=== PATIENT | female | born 1995 | race African-American/Black ===

== ENCOUNTER 2020-07-27 20:19 | Inpatient (IN) | payer BC, OTHER ==
[~2020-07-27] VITALS: Ht 167.6 cm; Wt 105.9 kg
[2020-07-27] MEDS ORDERED: ACETAMINOPHEN 325 MG TAB PO ONE (20:30)
[2020-07-27] MEDS ORDERED: CEFTRIAXONE SODIUM 2 GM in D5W 5% 50 ML IV ONE (23:15)
[2020-07-27] MEDS ORDERED: cefTRIAXone 1GM/50ML D5W 100 ML IV ONE (23:19)
[2020-07-28] VITALS (70 sets, daily range): BP systolic 58–147; BP diastolic 29–125
[2020-07-28] MEDS ORDERED: BUTORPHANOL TARTRATE 2 MG/1 ML VIAL IV PRN (00:45)
[2020-07-28] MEDS ORDERED: WITCH HAZEL-GLYCERIN PAD TOP PRN (01:00)
[2020-07-28] MEDS ORDERED: LACT. RINGERS/OXYTOCIN 20UNITS 1,000 ML IV SCH (01:00)
[2020-07-28] MEDS ORDERED: PHISODERM TOP SOLN 240ML BTL TOP PRN (01:00)
[2020-07-28] MEDS ORDERED: DERMOPLAST 60ML BOTTLE TOP PRN (01:00)
[2020-07-28] MEDS ORDERED: LIDOCAINE 2%HCL (LOCAL ANESTH.) INJ 20ML MDV IJ ONE (01:00)
[2020-07-28 01:03] LABS: Urine Bacteria NONE SEEN /hpf (None Seen); Urine Blood Negative /uL (Negative); Urine Specific Gravity 1.006 (1.001-1.035); Urine WBC 1 /hpf (0 - 5)
[2020-07-28 01:13] LABS: Amphetamine Screen, Urine NEGATIVE (NEGATIVE); Barbiturate Scree,Urine NEGATIVE (NEGATIVE); Benzodiazephine Screen, Urine NEGATIVE (NEGATIVE); Cannabinoid Screen, Urine NEGATIVE (NEGATIVE); Cocaine Screen, Urine NEGATIVE (NEGATIVE); Opiate Scree,Urine NEGATIVE (NEGATIVE); Phencyclidine Screen, Urine NEGATIVE (NEGATIVE)
[2020-07-28] MEDS ORDERED: GENTAMICIN SULFATE 80 MG in D5W 5% 100 ML IV SCH ×2 (01:30→10:00)
[2020-07-28] MEDS ORDERED: ACETAMINOPHEN 325 MG TAB PO PRN ×2 (01:45→05:30)
[2020-07-28 02:27] LABS: Basophils # (auto) 0 10 ^3/uL (0-0.2); Eosinophils # (auto) 0 10 ^3/uL (0-0.8); Lymphocytes # (auto) 0.7 10 ^3/uL (0.4-5.4); Monocytes # (auto) 0 10 ^3/uL (0-1.3); Red Cell Distribution Width 13.7 % (11.8-14.3)
[2020-07-28 02:31] LABS: Basophils % (auto) 0.2 % (0.0-2.0); Eosinophils % (auto) 0.1 % (0.0-7.0); Hematocrit 34.7 % (36.0-46.0); Hemoglobin 11.7 g/dL (12.2-16.2); Lymphocytes % (auto) 27.4 % (10.0-50.0); Mean Corpuscular Hemoglobin 29.5 pg (28.0-32.0); Mean Corpuscular Hgb Conc. 33.6 g/dL (32.0-36.0); Monocytes % (auto) 0.6 % (0.0-12.0); Neutrophils # (auto) 1.8 10 ^3/uL (1.6-8.6); Neutrophils % (auto) 71.7 % (37.0-80.0); Nucleated Red Blood Cells % 0.5 %; Platelet Count (auto) 215 10^3/uL (140-450); Red Blood Cells 3.94 10^6/uL (4.0-5.20); White Blood Cell 2.5 10^3/uL (4.4-10.8)
[2020-07-28 02:45] LABS: INR 1.03 (0.9-1.15); Partial Thromboplastin Time 26.2 sec (23.0-31.2)
[2020-07-28 02:46] LABS: Albumin 2.7 g/dL (3.4-5.0)
[2020-07-28 02:55] LABS: BUN/Creatinine Ratio 10.2; Bilirubin, Total 0.4 mg/dL (0.2-1.0); Total Protein 6.6 g/dL (6.4-8.2); Uric Acid 3.7 mg/dL (2.6-6.0)
[2020-07-28 02:56] LABS: Potassium 2.6 mmol/L (3.5-5.1)
[2020-07-28] MEDS ORDERED: POTASSIUM CHL 20 Meq TABLET PO ONE (03:00)
[2020-07-28] MEDS ORDERED: SOD CHL 0.9%/ KCL 40MEQ 1,000 ML IV SCH (03:00)
[2020-07-28] MEDS: IBUPROFEN 600 MG TAB PO PRN ×2 (05:35→23:44)
--- NOTE | 2020-07-28 05:45 | NUR ---
Ambulation: Patient OOB with standby assistance by RN. Patient ambulated to bathroom with steady gait. Patient unable to void at this time. Pericare teaching provided with returned demonstration by patient. Clean gown provided and bed linen changed. Patient ambulated back to bed with steady gait and no distress noted.
[2020-07-28] MEDS: SODIUM CHLORIDE 0.9% 1,000 ML IV SCH ×2 (07:15→10:41)
[2020-07-28] MEDS ORDERED: cefTRIAXone 1GM/50ML D5W 50 ML IV SCH (09:00)
--- NOTE | 2020-07-28 09:00 | NUR ---
Patient ambulated to restroom with steady gait. Standby assist of RN. Patient voided 400ml of yellow urine without difficulty. Patient complained of severe diarrhea that is uncontrollable. Patient had two episodes of diarrhea while on the toilet. Stated the diarrhea started after receiving the antibiotics. Assisted with pericare and ambulated back to bed with standby assist. Educated on need to have mother assist patient to the restroom. Call for assistance if needed. Sd rails up x2. Bed low. Call light in reach.
--- NOTE | 2020-07-28 09:25 | NUR ---
Dr Rodriguez called. Informed of patient's diarrhea and pain not controlled with motrin. Verbalized understanding. Received orders for tylenol #3 1 tablet PO q 6 hours prn severe pain.
[2020-07-28] MEDS: ACETAMINOPHEN/CODEINE#3 (300/30mg) TAB PO PRN (09:57)
[2020-07-28] MEDS ORDERED: ONDANSETRON HCL 4 MG/2 ML VIAL ONE (10:25)
[2020-07-28] MEDS: POTASSIUM CHL 20MEQ/100ML 100 ML IV SCH ×2 (10:33→13:00)
[2020-07-28] MEDS: ONDANSETRON HCL 4 MG/2 ML VIAL IV PRN (10:34)
--- NOTE | 2020-07-28 10:35 | NUR ---
Patient resting in bed. Stated she needed to use the restroom, stated she was going to have another bowel movement. Patient was unable to get up to the restroom in time. Patient had to episodes of bowel incontinence in the bed. PENELOPE Matamoros and Yovani Noe RN performed ni care, changed all linens, provided new gown. Patient tolerated well. Before leaving, vital signs taken on left arm (BP 85/46 HR 117, Temp 98.0 oral, respirations 16 spo2 98% RA), vital signs taken again in left arm BP 83/46 hr 121, right arm BP 80/46 HR 121, Dr Rodriguez called at 1045. Updated of above information. Verbalized understanding. Received orders for a hospitalist consult and bolus 1000ml NS. Called drawbench operator helper regarding what physician/hospitalist is long lines operator. Stated Dr Vela would be the consulting physician. Requested STAT page for Dr Vela at the [facility] bed 1. Verbalized understanding. Bolus started at 1048. Addendum: 07/28/20 at 1320 by PARIS NOE RN Received orders for CBC stat. Informed Dr Rodriguez COVID screen, C-Diff and Blood cultures are pending.
--- NOTE | 2020-07-28 11:15 | NUR ---
RN at bedside during entire bolus infusion taking blood pressure measurements every 5 minutes. After bolus infusion completed BP 83/44 HR 120 Spo2 99% RA. Dr Rodriguez called to update on above information. Stated he is on his way to the hospital. Dr Vela called unit. Stated he is not the visitor information assistant physician. BP taken again at 1120 BP 73/48, code assist called. Head of bed lowered, legs elevated. Educated patient and mother regarding need to call for additional assistance due to the extra fluid did not help increase the patient's blood pressure as hoped. Verbalized understanding. Dr Oliveira arrived on the unit at 1126. BP 60/[address] Oliveira administered Neosynephrine 100mg IVP. 1137 Bp 82/48 Hr 123. 2nd dose of 100mg neosynephrine administered by Dr Oliveira. Dr Rodriguez arrived to room 1. Updated on patient's status, attempting to transfer patient to ICU per Dr Oliveira's recommendation. 1138 [facility] paper machine supervisor at bedside, IV right hand 20g started by Dr Oliveira. Patent tolerated well, patent secured to hand with transparent dressing. 1139 ICU called regarding transfer to room 8 and need to contact visitor information assistant physician. Dr Rodriguez is requesting to speak with visitor information assistant ICU DR. 1140-Levophed 2mic started by Libby ICU nurse, patient placed on monitor tech. 1145 BP 92/54 HR 123 Bharath (ICU SHRIMP POND LABORER) paged overhead to come to room [address] Oliveira administered 3rd dose of 100mg neosynephrine. Levophed increased to 4 chester by Velma NEGRETE. 1148 Bharath ROMAN called and stated to transfer paged to ICU immediately. 1149 Tam catheter placed using sterile technique by Yovani Noe RN. Draining dark yellow urine, tubing secured to leg, bag hung below bladder, no kinks in tubing. 1152- ordered a pelvic US to r/o remain placenta. Ashlee called in US. Informed of STAT order. Verbalized understanding. Stated she will be over immediately. 1155-levophed increased to 6 chseter by Velma. Patient transfered by bed to room 108 in ICU. Arrived to unit at 1200. SBAR given to Bharath ROMAN and Denise EQUIPMENT OPERATOR/LABORER/SUPERVISOR. See vital signs section for all vitals taken. Addendum: 07/28/20 at 1457 by PARIS NOE RN Correction to above medication administration of Ramo-synephrine was administered in mcg not mg.
[2020-07-28] MEDS ORDERED: NOREPINEPHRINE 8 MG/250ML KIT 250 ML IV ONE (11:28)
[2020-07-28 12:03] LABS: Basophils # (auto) 0 10 ^3/uL (0-0.2); Basophils % (auto) 0.1 % (0.0-2.0); Eosinophils # (auto) 0 10 ^3/uL (0-0.8); Eosinophils % (auto) 0.2 % (0.0-7.0); Hematocrit 30.6 % (36.0-46.0); Lymphocytes # (auto) 0.6 10 ^3/uL (0.4-5.4); Lymphocytes % (auto) 2.8 % (10.0-50.0); Mean Corpuscular Hemoglobin 29.2 pg (28.0-32.0); Mean Corpuscular Hgb Conc. 32.9 g/dL (32.0-36.0); Mean Corpuscular Volume 88.9 fL (80.0-100.0); Monocytes # (auto) 1.1 10 ^3/uL (0-1.3); Monocytes % (auto) 5.4 % (0.0-12.0); Neutrophils # (auto) 18.6 10 ^3/uL (1.6-8.6); Neutrophils % (auto) 91.5 % (37.0-80.0); Red Blood Cells 3.44 10^6/uL (4.0-5.20); Red Cell Distribution Width 14.1 % (11.8-14.3)
[2020-07-28 12:05] LABS: Platelet Count (auto) 60 10^3/uL (140-450); White Blood Cell 20.3 10^3/uL (4.4-10.8)
--- NOTE | 2020-07-28 12:05 | NUR ---
Pt being admitted to ICU from L&D GREENCASTLEDELIA admitted to ICU via gurney on property assessment monitor, and portable 02. Patient transferred to bed, connected to ICU monitoring and oxygen, and weighed by bedscale. Patient oriented to Denise Galeana, primary RN, unit, room, bed, and unit policies regarding patient care, Covid precautions due to rule out and visiting restrictions due to Covid 19. All questions and concerns addressed, patient verbalized understanding. Patient alert and oriented x4, no distress noted, respirations even and unlabored, patient denies abdominal pain or discomfort at this time, however does report neck and head pain and reports "I already had this pain before coming to hospital". Fall and safety precautions in place, will continue to monitor.
[2020-07-28] MEDS ORDERED: NOREPINEPHRINE 8 MG/250ML KIT 250 ML IV SCH (12:15)
[2020-07-28] MEDS ORDERED: VANCOMYCIN PER PHARMACY 0 MG IV SCH (12:15)
[2020-07-28] MEDS ORDERED: LACTATED RINGER'S 1,000 ML IV ONE ×2 (12:15)
[2020-07-28 12:44] LABS: Albumin 2.1 g/dL (3.4-5.0); Calcium 7.8 mg/dL (8.5-10.1)
[2020-07-28 12:53] LABS: BUN/Creatinine Ratio 14.8; Bilirubin, Total 0.6 mg/dL (0.2-1.0); CRP High Sensitivity 12.8 mg/dL (< 0.3); Total Protein 5.2 g/dL (6.4-8.2)
[2020-07-28 12:58] LABS: Potassium 2.7 mmol/L (3.5-5.1)
--- NOTE | 2020-07-28 13:00 | NUR ---
DR ESCAMILLA VISITS/US TECH AT BEDSIDE DR ESCAMILLA UPDATED ON PATIENT'S STATUS, NO ORDERS RECEIVED. ULTRA SOUND TECH AT BEDSIDE.
--- NOTE | 2020-07-28 15:01 | NUR ---
Mother is next of kin/emergency contact Kourtney Farmer: [phone]. Please call with updates. Patient states it is ok to give personal information to her mother.
[2020-07-28] MEDS ORDERED: SODIUM BICARBONATE 50ML VIAL 150 ML in D5W 5% 1,000 ML IV SCH (15:45)
[2020-07-28] MEDS ORDERED: LIDOCAINE 1% (LOCAL ANESTH.) PF 5ml SDV ID ONE (16:00)
--- NOTE | 2020-07-28 16:00 | NUR ---
PICC line placement Patient/Patient significant other educated on need for PICC line placement. All risks and benefits explained and all questions and concerns addressed prior to procedure. Noted past medical history and allergies with no contraindications. INR and Plt counts within acceptable range. 5 fr PICC line inserted via RIGHT BRACHIAL vein using [employer]'s [employer] US and Tip Location System. Sterile technique with maximum barrier precautions utilized. Blood return obtained from each of THE THREE lumens and each flushed easily with NS using proper technique. PICC secured with Stat-lock; biodisc and occlusive dressing applied. Stat portable chest x-ray obtained for PICC tip placement. *Baseline Arm Circumference 35CM, INTERNAL LENGTH 38 CM, EXTERNAL LENGTH 0CM. PICC lot # [id number]. Note:
--- NOTE | 2020-07-28 16:32 | NUR ---
PICC LINE PLACEMENT RETRACTION. INTERNAL LENGTH 35CM EXTERNAL LENGTH 3CM TOTAL LENGTH 38CM. CIRCUMFERENCE 35CM.
--- NOTE | 2020-07-28 16:34 | NUR ---
OK to use PICC line Xray completed. OK to use PICC line. PRIMARY RN NOTIFIED
[2020-07-28] MEDS: VANCOMYCIN 1GM/250ML 250 ML IV SCH (17:00)
[2020-07-28] MEDS ORDERED: IOHEXOL 350 MG/ML 100ML IJ ONE (17:13)
--- NOTE | 2020-07-28 18:23 | NUR ---
PATIENT OFF FLOOR/CONTACT HOSPITALIST PATIENT OFF FLOOR TO RADIOLOGY FOR CHEST CT, ACCOMPANIED BY CHARGE NURSE VERÓNICA AND BRAND RECORDER. PATIENT'S VITAL SIGNS STABLE, WITH ELEVATED HEART RATE LOW 130s AND MAXED ON LEVOPHED. SPOKE WITH RUBIO HOSPITALIST, UPDATED ON PATIENT'S STATUS THUS FAR AND 200 MLS OF CONCENTRATED URINE, VS AND MAX LEVOPHED. RUBIO VERBALIZED UNDERSTANDING AND REVIEW LABS AND PENDING CT RESULTS.
[2020-07-28 18:45] LABS: BUN/Creatinine Ratio 17.9; Calcium 6.6 mg/dL (8.5-10.1); Potassium 4.1 mmol/L (3.5-5.1)
[2020-07-28 18:50] LABS: Partial Thromboplastin Time 48.2 sec (23.0-31.2)
[2020-07-28 18:51] LABS: INR 1.51 (0.9-1.15); Lactic Acid w/Reflex 8.7 mmol/L (0.4-2.0)
[2020-07-28] MEDS: NOREPINEPHRINE 8 MG/250ML KIT 250 ML IV SCH ×2 (19:00→23:48)
[2020-07-28] MEDS: PIPERACILLIN-TAZOB 3.375GM 100 ML IV SCH ×2 (19:00→22:00)
--- NOTE | 2020-07-28 19:00 | NUR ---
SHIFT SUMMARY VITAL SIGN CHANGES THROUGHOUT SHIFT, HEART RATE INCREASED/LOW SBP. PATIENT REMAINS ON MAX RATE LEVOPHED TITRATED PER PROTOCOL THROUGHOUT SHIFT. HOSPITALIST AWARE HOSPITALIST VISITS THROUGHOUT MORNING SHIFT, OBTAINING STATUS ON PATIENT. PATIENT HAD TWO LOOSE STOOLS EARLY IN THE SHIFT YELLOW IN COLOR, PER L&D NURSE, C-DIFF SENT TO LAB, HOSPITALIST AWARE. PATIENT REMAINED ALERT AND ORIENTED THROUGHOUT SHIFT, ON TWO OCCASIONS, PATIENT REPORTED FEELING LIGHT HEADED AND BLURRED VISION, AT THIS TIME SBP WAS IN THE 60 - 70s. ON BOTH OCCASIONS, PATIENT STABILIZED AND INCREASED LEVOPHED PER PROTOCOL. MD AWARE. SCANT VAGINAL BLEEDING BLEEDING NOTED, PATIENT CLEANSED TWICE IN SHIFT - TOLERATED WELL. PATIENT ALERT AND ORIENTED X4, NO DISTRESS NOTED, RESPIRATIONS EVEN AND UNLABORED, PATIENT CARE ENDORSED TO MANAGER IN TRAINING RN.
--- NOTE | 2020-07-28 19:00 | NUR ---
Opening Shift Note Assumed care of patient, awake and alert. No S/S of distress/SOB or pain. Instructed on POC and to call for assist PRN, will continue to monitor for changes Q1hr and PRN.
--- NOTE | 2020-07-28 19:53 | NUR ---
CONTACT HOSPITALIST SPOKE WITH RUBIO, PROVIDED UPDATED STATUS ON VITAL SIGNS. ORDERS FOR VASOPRESSIN AND TO INCREASE MAINTENANCE FLUID TO 150 MLS/HR. KVNG ON COMING RN NOTIFIED.
[2020-07-28] MEDS: VASOPRESSIN 50 UNITS in D5W 5% 247.5 ML IV SCH (20:00)
[2020-07-28] MEDS: SODIUM BICARBONATE 50ML VIAL 150 ML in D5W 5% 1,000 ML IV SCH (20:00)
--- NOTE | 2020-07-28 21:00 | NUR ---
BM: Patient had a BM. RN and another female RN provided ni care and partial linen change.
[2020-07-28 21:35] LABS: Hematocrit 25.7 % (36.0-46.0); Hemoglobin 8.6 g/dL (12.2-16.2); Mean Corpuscular Hemoglobin 29.3 pg (28.0-32.0); Mean Corpuscular Hgb Conc. 33.5 g/dL (32.0-36.0); Mean Corpuscular Volume 87.5 fL (80.0-100.0); Platelet Count (auto) 53 10^3/uL (140-450); Red Blood Cells 2.94 10^6/uL (4.0-5.20); Red Cell Distribution Width 14.1 % (11.8-14.3); White Blood Cell 22.6 10^3/uL (4.4-10.8)
[2020-07-28 21:38] LABS: Basophils % (manual) 0 (0.0-2.0); Blast Cells 0; Eosinophils % (manual) 0 (0-7); Myelocytes % 0; Promyelocytes % 0; Reactive Lymphocytes 0
[2020-07-28 21:59] LABS: Band Neutrophils % (manual) 32; Lymphocytes % (manual) 3 (10.0-50.0); Metamyelocytes % 3; Monocytes % (manual) 7 (0-12)
[2020-07-28] MEDS: SODIUM CHLOR 0.9% PF (SALINE LOCK) 10ML VIAL/SYR IV SCH (22:00)
[2020-07-29] VITALS (87 sets, daily range): BP systolic 81–113; BP diastolic 34–77
[2020-07-29] MEDS ORDERED: cefTRIAXone 1GM/50ML D5W 50 ML IV SCH
--- NOTE | 2020-07-29 | NUR ---
BM: Patient had a BM. RN and another female RN provided ni care and partial linen change.
[2020-07-29] MEDS ORDERED: SODIUM BICARBONATE 8.4 % INJ 50ML VIAL IV ONE (01:22)
[2020-07-29] MEDS: SODIUM BICARBONATE 50ML VIAL 150 ML in D5W 5% 1,000 ML IV SCH ×2 (02:00→10:30)
--- NOTE | 2020-07-29 02:42 | NUR ---
Hospitalist paged: Hospitalist paged d/t patient complaining of the inability to sleep. Hospitalist returned page immediately. Order received and verified.
[2020-07-29] MEDS ORDERED: TEMAZEPAM 15 MG CAP PO ONE (02:45)
[2020-07-29] MEDS: ONDANSETRON HCL 4 MG/2 ML VIAL IV PRN ×2 (03:10→09:21)
--- NOTE | 2020-07-29 03:10 | NUR ---
Patient vomited: Patient vomited all over bed and floor. Patient appears to not be in any kind of distress. Patient stated, "I just had a hick up and i ended up vomiting". RN provided a full linen change and cleaned bed and floor. Patient resting back in bed comfortably. PRN Zofran was given.
[2020-07-29] MEDS: PIPERACILLIN-TAZOB 3.375GM 100 ML IV SCH ×4 (04:00→22:00)
--- NOTE | 2020-07-29 04:00 | NUR ---
Resting: Patient resting in bed and asleep. RN will continue to monitor and assess patient.
[2020-07-29 04:01] LABS: Hemoglobin 10.7 g/dL (12.2-16.2)
[2020-07-29 04:04] LABS: Hematocrit 30.8 % (36.0-46.0); Mean Corpuscular Hemoglobin 29.5 pg (28.0-32.0); Mean Corpuscular Hgb Conc. 34.6 g/dL (32.0-36.0); Mean Corpuscular Volume 85.3 fL (80.0-100.0); Platelet Count (auto) 65 10^3/uL (140-450); Red Blood Cells 3.61 10^6/uL (4.0-5.20)
[2020-07-29 04:10] LABS: White Blood Cell 30.2 10^3/uL (4.4-10.8)
[2020-07-29 04:11] LABS: Basophils % (manual) 0 (0.0-2.0); Eosinophils % (manual) 0 (0-7); Promyelocytes % 0
[2020-07-29 04:12] LABS: Blast Cells 0; Reactive Lymphocytes 0
[2020-07-29 04:20] LABS: Albumin 2.1 g/dL (3.4-5.0); Calcium 6.9 mg/dL (8.5-10.1); Potassium 3.6 mmol/L (3.5-5.1)
[2020-07-29 04:24] LABS: BUN/Creatinine Ratio 16.8; Bilirubin, Total 0.6 mg/dL (0.2-1.0); Total Protein 5.4 g/dL (6.4-8.2)
[2020-07-29 04:37] LABS: Band Neutrophils % (manual) 5; Lymphocytes % (manual) 5 (10.0-50.0); Metamyelocytes % 6; Monocytes % (manual) 7 (0-12); Myelocytes % 2
[2020-07-29] MEDS: VANCOMYCIN 1GM/250ML 250 ML IV SCH ×2 (06:00→22:00)
--- NOTE | 2020-07-29 06:47 | NUR ---
Hospitalist paged: RN notified hospitalist of patient's increased WBC's. No new orders received at this time.
--- NOTE | 2020-07-29 07:30 | NUR ---
Opening Shift Note Assumed care of patient, awake and alert x 4, no S/S of distress/SOB or pain. Patient cleaned, gown and bedding changed, warm blanket given. Patient reports being hungry ny crackers and milk given before breakfast comes. Instructed on POC and to call for assist PRN, will continue to monitor for changes Q1hr and PRN.
[2020-07-29] MEDS: SODIUM CHLOR 0.9% PF (SALINE LOCK) 10ML VIAL/SYR IV SCH ×2 (09:20→22:00)
[2020-07-29] MEDS: FLORASTOR (S. BOULARDII) 250 MG CAP PO SCH (09:21)
[2020-07-29] MEDS: NOREPINEPHRINE 8 MG/250ML KIT 250 ML IV SCH ×3 (09:22→23:16)
--- NOTE | 2020-07-29 11:23 | NUR ---
PATIENT HAD A SMALL BM, CLEANED PATIENT AND CHANGED ALL PADS.
--- NOTE | 2020-07-29 11:39 | NUR ---
PICC LINE DRESSING CHANGE DONE TO RIGHT UPPER ARM PICC LINE. PATIENT TOLERATED WELL.
[2020-07-29] MEDS: VASOPRESSIN 50 UNITS in D5W 5% 247.5 ML IV SCH (11:47)
[2020-07-29] MEDS ORDERED: PANTOPRAZOLE 40 MG/10 ML VIAL INJ IV ONE (14:15)
[2020-07-29] MEDS: PROMETHAZINE HCL 25 MG/ML 1ML IV PRN ×2 (14:46→20:54)
--- NOTE | 2020-07-29 15:15 | NUR ---
TRANSVAGINAL US CURRENTLY BEING DONE AT THIS TIME.
[2020-07-29 16:28] LABS: BUN/Creatinine Ratio 18.2; Calcium 6.7 mg/dL (8.5-10.1)
[2020-07-29 16:30] LABS: Lactic Acid w/Reflex 3.7 mmol/L (0.4-2.0)
--- NOTE | 2020-07-29 18:45 | NUR ---
FUNDAL RUB PERFORMED BY THIS RN. SHE IS 3 FINGERTIPS BELOW. FIRM AND NO BLEEDING. PT TOLERATED WELL.
[2020-07-29] MEDS: SOD CHL 0.9%/ KCL 20MEQ 1,000 ML IV SCH ×2 (20:00→22:30)
[2020-07-29] MEDS ORDERED: metroNIDAZOLE 500MG/100ML 100 ML IV ONE (20:00)
--- NOTE | 2020-07-29 20:00 | NUR ---
Received pt resting in bed, c/o nausea, ate minimally at dinner, abdomen tender, fundus not palpable, massaged gently, small amt of bloody vaginal secretions,. Pt is slightly anxious, temp [id number], exreemities cool to touch, ; Pt is tachycardic 125-130/min, no respiratory distress on RA. assisted to brush her teeth and medicated for nausea, asks for bedpan, no results, f/c patent.
[2020-07-29] MEDS: ACETAMINOPHEN/CODEINE#3 (300/30mg) TAB PO PRN (23:18)
[2020-07-30] VITALS (90 sets, daily range): BP systolic 81–118; BP diastolic 31–79
[2020-07-30] MEDS: metroNIDAZOLE 500MG/100ML 100 ML IV SCH ×3 (03:54→21:45)
[2020-07-30] MEDS: PIPERACILLIN-TAZOB 3.375GM 100 ML IV SCH ×4 (03:54→23:07)
[2020-07-30] MEDS: ACETAMINOPHEN/CODEINE#3 (300/30mg) TAB PO PRN (03:57)
[2020-07-30 03:59] LABS: Hematocrit 26.8 % (36.0-46.0); Hemoglobin 9.2 g/dL (12.2-16.2); Mean Corpuscular Hemoglobin 29.3 pg (28.0-32.0); Mean Corpuscular Hgb Conc. 34.2 g/dL (32.0-36.0); Mean Corpuscular Volume 85.7 fL (80.0-100.0); Platelet Count (auto) 80 10^3/uL (140-450); Red Blood Cells 3.13 10^6/uL (4.0-5.20); Red Cell Distribution Width 13.8 % (11.8-14.3); White Blood Cell 26.3 10^3/uL (4.4-10.8)
[2020-07-30 04:13] LABS: Basophils % (manual) 0 (0.0-2.0); Blast Cells 0; Eosinophils % (manual) 0 (0-7); Myelocytes % 0; Promyelocytes % 0; Reactive Lymphocytes 0
[2020-07-30 04:20] LABS: Lactic Acid w/Reflex 4.7 mmol/L (0.4-2.0)
[2020-07-30 04:22] LABS: Albumin 1.9 g/dL (3.4-5.0); Calcium 6.3 mg/dL (8.5-10.1); Potassium 3.1 mmol/L (3.5-5.1)
[2020-07-30 04:26] LABS: BUN/Creatinine Ratio 18.1; Bilirubin, Total 0.6 mg/dL (0.2-1.0); Total Protein 5.4 g/dL (6.4-8.2)
[2020-07-30 04:49] LABS: Band Neutrophils % (manual) 4; Lymphocytes % (manual) 7 (10.0-50.0); Metamyelocytes % 3; Monocytes % (manual) 3 (0-12)
[2020-07-30] MEDS: VASOPRESSIN 50 UNITS in D5W 5% 247.5 ML IV SCH (04:50)
[2020-07-30 05:10] LABS: RPR Non Reactive (Non Reactive)
[2020-07-30 07:06] LABS: Rubella Antibodies, IgG 3.25 index (Immune >0.99)
--- NOTE | 2020-07-30 08:00 | NUR ---
AM ASSESSMENT COMPLETED. SEE FLOW SHEET. PT CURRENTLY ON LEVOPHED AT 25 SEAN/MIN FOR HYPOTENSION AND VASOPRESSIN AT .02 SEAN/MIN. PT S/P DEMISE, SEPTIC ON IVF. LOCHIAL MINIMAL, FUNDUS AT -3. EDUCATED ON POC. PT VERBALIZED UNDERSTANDING.
[2020-07-30] MEDS: PROMETHAZINE HCL 25 MG/ML 1ML IV PRN ×2 (08:46→21:45)
--- NOTE | 2020-07-30 08:48 | NUR ---
MEDICATED WITH 12.5 MG OF PHENERGAN AFTER PT VOMITED 200 ML OF VOMIT , PT WAS TRYING TO EAT HER BREAKFAST. PT UNABLE TO EAT HER BREAKFAST D/T N/V.
[2020-07-30] MEDS: SOD CHL 0.9%/ KCL 20MEQ 1,000 ML IV SCH ×3 (08:50→18:43)
--- NOTE | 2020-07-30 09:39 | NUR ---
OB ASSESSMENT DONE WITH COLLABORATION OF OB RN ANNA. PT'S FONDUS FOUND AT 3 CM BELOW UMBILICUS DEEP. LOCHIA SCANT LIGHT BROWN WITH A MILD FOUL ODOR. PT HAS A LOW GARDE TEMP 100.1 , IS NAUSEATED, UOP IMPROVING TO 40 ML/HR AND CLEARING UP, FROM A DARKER COLOR TO YELLOW. PT REMAINS ON VASOPRESSOR. IVF NS WITH 20K AT 150 ML/HR.
[2020-07-30] MEDS: PANTOPRAZOLE 40 MG/10 ML VIAL INJ IV SCH (10:00)
[2020-07-30] MEDS: FLORASTOR (S. BOULARDII) 250 MG CAP PO SCH (10:01)
[2020-07-30] MEDS: POTASSIUM CHL 20MEQ/100ML 100 ML IV SCH ×2 (10:01→12:40)
[2020-07-30] MEDS: SODIUM CHLOR 0.9% PF (SALINE LOCK) 10ML VIAL/SYR IV SCH ×2 (10:02→23:06)
[2020-07-30] MEDS: NOREPINEPHRINE 8 MG/250ML KIT 250 ML IV SCH (11:19)
[2020-07-30] MEDS ORDERED: MAGNESIUM SULFATE 1GM/100ML 100 ML IV ONE (11:45)
--- NOTE | 2020-07-30 11:50 | NUR ---
DR. ZHU IN TO SEE PT. UPDATED ON PT'S CONDITION VITAL SIGNS, LATEST TEMP 98.8 ORAL, UOP IMPROVING IN HOURLY OUTPUT AND COLOR. MD HAPPY WITH PT'S OVER ALL LOOK, HE STATES " LESS TOXIC SHOCK LOOK". HE IS HAPPY WITH VASOPRESSOR BEING TITRATED DOWN. I ASKED HIM IF IT WAS NECESSARY TO KEEP ON CHECKING FUNDUS HE SAYS IT'S NOT SINCE PT IS NO LONGER BLEEDING AND PT IS TENDER.
--- NOTE | 2020-07-30 13:45 | NUR ---
WEANED OFF VASOPRESSIN PT BEING TITRATED OFF LEVOPHED GTT, SEE IV FLOW SHEET.
[2020-07-30] MEDS: VANCOMYCIN 1GM/250ML 250 ML IV SCH (14:43)
--- NOTE | 2020-07-30 17:25 | NUR ---
SS consult due to demise. Pt is an alert and oriented female that lost her baby at 23 weeks. Pt is able to verbalize but showing little to no emotion when discussing loss. Pt states she resides with her mother in the [facility] and does not work or go to school. Pt states she was in the [facility] area visiting her brother. Also states that the FOB is involved and supportive. When asked pt stated she has 1 child and when asked the age she verbalized that child had passed also when she was 17 weeks in December 2019. Discussed with pt multiple major losses in less than a year and the impact on her emotionally. per pt she has not processed the loss due to the amount of pain she has been in. Pt appears to be exhibiting emotional pain in the form of physical distress. Provided encouragement to utilize appropriate coping mechanisms i.e. support group, outpatient therapy, and emotional/verbal grief expression. Provided literature regarding loss and support groups in the [facility]. Will also provide list of contracted therapists in the [place] area. Pt states she was able to hold the baby but that her mother is is the one finalizing arrangements for a memorial for baby. no further ss concerns /needs.
--- NOTE | 2020-07-30 19:45 | NUR ---
REPORT RECEIVED AND ASSUMED CARE; SEE INTERVENTIONS FOR ASSESSMENT; VS STABLE AT THIS TIME WITH PT. ON LEVOPHED GTT AT 10MCG/MIN; PT. RESTING IN BED, WATCHING TV, AND TALKING ON HER CELL PHONE; PT. STATES HER PAIN LEVEL IS OK AT A 0-5/10, AND STATES HER LEVEL IS A 5 RIGHT NOW AND DOES NOT WANT PAIN MED AT THIS TIME; PT. ALSO HAVING SOME MILD NAUSEA- BUT TOO SOON FOR PHENERGAN IVP; PT. ON CLEAR LIQUID DIET AND CURRENTLY WORKING ON HER BROTH, JUICE, AND SOME ICE WATER; PT. FUNDUS IS TENDER AND NO LONGER DOING FUNDAL MASSAGE PER DR. LANGE; PT. HAVING SCANT LOCHIA THAT IS BROWNISH-RED AND FOUL ODOR; WILL CONT. TO MONITOR.
--- NOTE | 2020-07-30 22:00 | NUR ---
PROVIDED ADELAIDE-CARE AND CHANGED FEMININE PAD; APPLIED ICE PACK TO VAGINAL AREA; PT. C/O PAIN IN VAGINAL AREA AND SOME EDEMA TO VAGINAL AREA; WILL CONT. TO MONITOR.
[2020-07-31] VITALS (83 sets, daily range): BP systolic 95–121; BP diastolic 35–88
[2020-07-31] MEDS: VANCOMYCIN 1GM/250ML 250 ML IV SCH ×2 (02:03→15:14)
[2020-07-31] MEDS: PIPERACILLIN-TAZOB 3.375GM 100 ML IV SCH ×4 (04:00→21:59)
[2020-07-31] MEDS: SOD CHL 0.9%/ KCL 20MEQ 1,000 ML IV SCH ×4 (04:50→17:57)
[2020-07-31 06:48] LABS: Potassium 3.3 mmol/L (3.5-5.1)
[2020-07-31 06:59] LABS: BUN/Creatinine Ratio 15.9; Calcium 6.1 mg/dL (8.5-10.1); Magnesium 1.9 mg/dL (1.6-2.6)
[2020-07-31 07:01] LABS: Red Blood Cells 3.05 10^6/uL (4.0-5.20)
[2020-07-31 07:03] LABS: Hematocrit 26.1 % (36.0-46.0); Hemoglobin 8.8 g/dL (12.2-16.2); Mean Corpuscular Hemoglobin 28.9 pg (28.0-32.0); Mean Corpuscular Hgb Conc. 33.7 g/dL (32.0-36.0); Mean Corpuscular Volume 85.8 fL (80.0-100.0); Platelet Count (auto) 102 10^3/uL (140-450); Red Cell Distribution Width 13.8 % (11.8-14.3)
[2020-07-31 07:10] LABS: White Blood Cell 32.2 10^3/uL (4.4-10.8)
[2020-07-31 07:11] LABS: Basophils % (manual) 0 (0.0-2.0); Blast Cells 0; Eosinophils % (manual) 0 (0-7); Myelocytes % 0; Promyelocytes % 0; Reactive Lymphocytes 0
[2020-07-31] MEDS: metroNIDAZOLE 500MG/100ML 100 ML IV SCH ×3 (07:11→21:59)
[2020-07-31] MEDS: PROMETHAZINE HCL 25 MG/ML 1ML IV PRN ×3 (07:36→19:44)
--- NOTE | 2020-07-31 07:37 | NUR ---
MEDICATED WITH PHENERGAN 12.5 MG IV FOR NAUSEA AFTER REPOSITIONING .
--- NOTE | 2020-07-31 08:00 | NUR ---
AM ASSESSMENT COMPLETED. OFF VASOPRESSORS DENIES ANY N/V/D. S/P DEMISE. LOW GRADE TEMP 99.5 AX. WBC 32.2 WILL UPDATE MD WHEN ROUNDING.
[2020-07-31 08:12] LABS: Band Neutrophils % (manual) 9; Lymphocytes % (manual) 5 (10.0-50.0); Metamyelocytes % 1; Monocytes % (manual) 1 (0-12)
[2020-07-31] MEDS ORDERED: POTASSIUM CHL 20MEQ/100ML 100 ML IV ONE (09:30)
[2020-07-31] MEDS ORDERED: MAGNESIUM SULFATE 1GM/100ML 100 ML IV ONE (09:30)
[2020-07-31] MEDS: PANTOPRAZOLE 40 MG/10 ML VIAL INJ IV SCH (10:08)
[2020-07-31] MEDS: SODIUM CHLOR 0.9% PF (SALINE LOCK) 10ML VIAL/SYR IV SCH ×2 (10:09→22:00)
[2020-07-31] MEDS: FLORASTOR (S. BOULARDII) 250 MG CAP PO SCH (10:09)
--- NOTE | 2020-07-31 11:54 | NUR ---
DR. SEVILLA IN TO SEE PT. I UPDATED MD ON ECHO RESULTS. MD CALLED PT'S MOTHER PREVIOUSLY REQUESTED. HE LEFT HER A MESSAGE IN HER VOICE-MAIL, PT'S MOTHER WAS NOT AVAILABLE. MD PLACE A CARDIAC CONSULTATION TO INVESTIGATE A QUESTIONABLE VSD ON PT'S HEART DR. SEVILLA UPDATED PT. PT STATES SHE HAS NEVER HAD ANY ISSUES WITH HER HEART.PT WILL REMAIN IN ICU UNTIL SHE GET CARDIAC CLEARANCE.
[2020-07-31] MEDS ORDERED: POTASSIUM CHL 20 Meq TABLET PO ONE (12:00)
[2020-07-31] MEDS ORDERED: FUROSEMIDE 20 MG/2 ML VIAL IV ONE (12:00)
[2020-07-31] MEDS: NOREPINEPHRINE 8 MG/250ML KIT 250 ML IV SCH (12:15)
--- NOTE | 2020-07-31 14:31 | NUR ---
Nutrition Assessment Notes Please refer to link for full assessment notes. Est Energy needs: [id number] kcals (14-18 kcal/kgBW) Est Protein needs: 89-118 gms/day (1.5-2.0 gm/kgIBW) Will continue to monitor and reassess prn. Addendum: 07/31/20 at [address] Amended: Links added.
[2020-07-31 16:20] LABS: Calcium 6.4 mg/dL (8.5-10.1); Potassium 3.5 mmol/L (3.5-5.1)
[2020-07-31 16:22] LABS: BUN/Creatinine Ratio 12.3
--- NOTE | 2020-07-31 18:24 | NUR ---
DR. CHIANG IN FOR CARDIAC CONSULTATION I UPDATED MD ON PT'S CONDITION, HE HAS ALREADY SPOKEN TO DR. SEVILLA AND IS WELL AWARE OF PT'S SITUATION, HE PLANS ON DOING A ELIDA TOMORROW. HE SPOKE TO PT'S MOTHER CATERINA CATERINA EXPRESS HER DESIRE TO HAVE HER DAUGHTER TRANSFERRED TO HIGHER LEVEL OF CARE TO [facility], DR. CHIANG TOLD CATERINA THAT HE HAS CONNECTINS AT [facility] IF PT NEEDS HIGHER LEVEL OF CARE AFTER ELIDA " HE'LL MAKE IT HAPPEN".
--- NOTE | 2020-07-31 18:45 | NUR ---
DR. ZHU IN TO SEE PT. UPDATED ON PT'S ECHOCARDIOGRAM FINDINGS AND ON PT'S ELIDA PLAN FROM DR. CHIANG FOR TOMORROW. MD WAS TOLD BY PT'S DAUGHTER THAT HER MOTHER WANTS HER TO BE TRANSFERRED TO [facility] TO HER PRIMARY DOCTOR'S, MD STATES THAT HE AGREE'S BUT HE LEAVE'S THAT TO HIS PRIMARY MD. MD ALSO LEAVE'S PT'S ADL'S TO SLITTER CREASER SLOTTER HELPER TO DECIDE AFTER ELIDA TOMORROW. HAPPY WITH PT'S PROGRESS BEEN OFF ALL VASOPRESSORS, PT STILL C/O FEELING WEAK, HAVING POOR APPETITE AND FEELING ABDOMINAL TENDERNESS AND HAVING NAUSEA WITH INCREASED ACTIVITY OR WHEN EATING. PT REMAINS ON A FULL LIQUID DIET. PT HAD 2 SEMI- LIQUID BM'S TODAY. PT HAD ONE FULL BATH AND A PARTIAL BATH WITH A FULL LINEN CHANGE.
--- NOTE | 2020-07-31 19:15 | NUR ---
REPORT GIVEN TO ONCOMING SHIFT. PENELOPE DOUGLAS IS TO OBTAIN CONSENT FOR ELIDA FOR TOMORROW.
[2020-07-31] MEDS: VASOPRESSIN 50 UNITS in D5W 5% 247.5 ML IV SCH (20:00)
[2020-08-01] VITALS (15 sets, daily range): BP systolic 103–143; BP diastolic 63–95
[2020-08-01 01:14] LABS: Hematocrit 28.5 % (36.0-46.0); Hemoglobin 9.4 g/dL (12.2-16.2); Mean Corpuscular Hemoglobin 28.9 pg (28.0-32.0); Mean Corpuscular Hgb Conc. 33.1 g/dL (32.0-36.0); Mean Corpuscular Volume 87.3 fL (80.0-100.0); Platelet Count (auto) 102 10^3/uL (140-450); Red Blood Cells 3.26 10^6/uL (4.0-5.20); White Blood Cell 27.4 10^3/uL (4.4-10.8)
[2020-08-01 01:17] LABS: Band Neutrophils % (manual) 0; Basophils % (manual) 0 (0.0-2.0); Blast Cells 0; Eosinophils % (manual) 0 (0-7); Metamyelocytes % 0; Monocytes % (manual) 0 (0-12); Myelocytes % 0; Promyelocytes % 0; Reactive Lymphocytes 0
[2020-08-01 01:33] LABS: BUN/Creatinine Ratio 12.3; Calcium 6.6 mg/dL (8.5-10.1); Potassium 3.7 mmol/L (3.5-5.1)
[2020-08-01 01:36] LABS: Lymphocytes % (manual) 13 (10.0-50.0)
[2020-08-01] MEDS: VANCOMYCIN 1GM/250ML 250 ML IV SCH ×3 (02:20→17:20)
[2020-08-01] MEDS: ACETAMINOPHEN/CODEINE#3 (300/30mg) TAB PO PRN (02:38)
[2020-08-01] MEDS: PIPERACILLIN-TAZOB 3.375GM 100 ML IV SCH ×4 (04:50→18:30)
[2020-08-01] MEDS: metroNIDAZOLE 500MG/100ML 100 ML IV SCH ×3 (05:38→22:30)
[2020-08-01] MEDS: SODIUM CHLOR 0.9% PF (SALINE LOCK) 10ML VIAL/SYR IV SCH ×2 (09:46→22:00)
[2020-08-01] MEDS: PANTOPRAZOLE 40 MG/10 ML VIAL INJ IV SCH ×2 (09:46→10:01)
[2020-08-01] MEDS: SOD CHL 0.9%/ KCL 20MEQ 1,000 ML IV SCH (10:02)
[2020-08-01] MEDS ORDERED: MIDAZOLAM HCL 5 MG/ML-1ML VIAL ONE (12:37)
--- NOTE | 2020-08-01 13:09 | NUR ---
ELIDA WAS DONE AT THE BEDSIDE WITH BUBBLES PATIENT MEDICATED WITH 4 MG OF VERSED TOTAL AND PATIENT TOLERATED WELL. PATIENT ON OXYGEN AT 2 LITERS /NASAL CANNULA THEY FOUND PULMONARY HYPERTENSION AND PFO. PATIENT WILL START ON ROVADIO 20 MG TID FR PULMONARY HYPERTENSION.
[2020-08-01] MEDS: SILDENAFIL CITRATE 20 MG TAB PO SCH ×2 (14:34→19:54)
[2020-08-01] MEDS: FLORASTOR (S. BOULARDII) 250 MG CAP PO SCH (14:35)
--- NOTE | 2020-08-01 16:08 | NUR ---
PATIENT WENT TO NUCLEAR MED VIA BED AND WILL TRANSFER FROM NUCLEAR MEDICINE TO [facility]. REPORT TO YANNA.
--- NOTE | 2020-08-01 16:35 | NUR ---
1400 VANCOMYCIN DOSE NOT INFUSED. PHARMACY CALLED TO RESCHEDULE MEDICATION.
[2020-08-01] MEDS: PROMETHAZINE HCL 25 MG/ML 1ML IV PRN (19:55)
[2020-08-02] MEDS: PIPERACILLIN-TAZOB 3.375GM 100 ML IV SCH ×5 (00:18→23:48)
[2020-08-02] MEDS: PROMETHAZINE HCL 25 MG/ML 1ML IV PRN ×3 (00:22→22:35)
--- NOTE | 2020-08-02 00:56 | NUR ---
Transfer Received The patient arrived to the floor at approximately 2130hrs. The patient was in good spirits, denied pain but did appear to have labored breathing. Applied a Nasal Cannula, the patients breathing did improve. Completed my physical assessment, oriented the patient to her new environment. Will continue to monitor. Addendum: 08/02/20 at 0102 by JOSE HAMPTON RN Previous note on the wrong patient.
[2020-08-02 04:00] VITALS: BP 117/63
[2020-08-02] MEDS: VANCOMYCIN 1GM/250ML 250 ML IV SCH ×2 (04:33→16:42)
[2020-08-02] MEDS ORDERED: IPRATROPIUM BROM 0.5 MG/2.5ML INH SOL NEB ONE (05:15)
[2020-08-02] MEDS ORDERED: ALBUTEROL SULF 2.5 MG/0.5ML(0.5%) NEB SOLN NEB ONE (05:15)
--- NOTE | 2020-08-02 05:46 | NUR ---
Administered medneb tx as ordered. Pt tolerated tx well with no adverse reactions. HR 98, RR 18, SPO2 97% on room air. Breath sounds clear/diminished t/o. No s/s of distress noted. Pt aware to call for RT again if needed.
[2020-08-02] MEDS: metroNIDAZOLE 500MG/100ML 100 ML IV SCH ×3 (06:49→21:37)
--- NOTE | 2020-08-02 07:00 | NUR ---
OPENING SHIFT NOTE ASSUMED CARE OF PATIENT FROM BARK SKINNER RN KP. PATIENT IS AWAKE, ALERT, AND ORIENTED X4. PATIENT HAS NO S/S OF DISTRESS/SOB OR PAIN. INSTRUCTED PATIENT ON POC, PATIENT VERBALIZED UNDERSTANDING. BED IS IN LOWEST POSITION WITH SIDE RAILS RAISED X2,BED WHEELS LOCKED, GALVAN IS HANGING BELOW BLADDER AND IS DRAINING YELLOW URINE, AND CALL LIGHT IS WITHIN REACH. WILL CONTINUE MONITOR.
[2020-08-02] MEDS: SODIUM CHLOR 0.9% PF (SALINE LOCK) 10ML VIAL/SYR IV SCH ×2 (08:36→21:37)
[2020-08-02] MEDS: SILDENAFIL CITRATE 20 MG TAB PO SCH ×3 (08:36→20:10)
[2020-08-02] MEDS: PANTOPRAZOLE 40 MG/10 ML VIAL INJ IV SCH (08:36)
[2020-08-02] MEDS: FLORASTOR (S. BOULARDII) 250 MG CAP PO SCH (08:37)
[2020-08-02] MEDS: ACETAMINOPHEN/CODEINE#3 (300/30mg) TAB PO PRN (08:42)
[2020-08-02 09:00] VITALS: BP 118/76
[2020-08-02 09:29] LABS: Hematocrit 31.3 % (36.0-46.0); Hemoglobin 10.2 g/dL (12.2-16.2); Mean Corpuscular Hemoglobin 28.5 pg (28.0-32.0); Mean Corpuscular Hgb Conc. 32.5 g/dL (32.0-36.0); Mean Corpuscular Volume 87.6 fL (80.0-100.0); Platelet Count (auto) 143 10^3/uL (140-450); Red Blood Cells 3.57 10^6/uL (4.0-5.20); Red Cell Distribution Width 14.8 % (11.8-14.3); White Blood Cell 27.7 10^3/uL (4.4-10.8)
[2020-08-02 09:36] LABS: Basophils % (manual) 0 (0.0-2.0); Blast Cells 0; Myelocytes % 0; Promyelocytes % 0; Reactive Lymphocytes 0
[2020-08-02 09:45] LABS: Calcium 7.4 mg/dL (8.5-10.1); Potassium 3.4 mmol/L (3.5-5.1)
[2020-08-02 09:47] LABS: BUN/Creatinine Ratio 11.5
--- NOTE | 2020-08-02 10:23 | NUR ---
RECEIVED CALL FROM DR. WOODS INFORMED OF PATIENT'S POTASSIUM, MD IS AWARE AND ORDERED POTASSIUM TO BE GIVEN.
[2020-08-02] MEDS ORDERED: POTASSIUM EFFERVESENT TAB 25 MEQ PO ONE (10:30)
[2020-08-02 10:39] LABS: Band Neutrophils % (manual) 10; Eosinophils % (manual) 1 (0-7); Lymphocytes % (manual) 7 (10.0-50.0); Metamyelocytes % 1; Monocytes % (manual) 6 (0-12)
--- NOTE | 2020-08-02 12:00 | NUR ---
I SPOKE WITH DR. WOODS ABOUT TRANSFERRING PT TO [facility] SHE STATES PT CAN STAY IN 274; SHE JUST NEEDS TO BE MONITORED. SHE EXPRESSED CONCERN AT PT DIAGNOSIS BUT FELT SHE WAS STABLE BUT NEEDED HLOC. TRANSFER ORDER CANCELLED
[2020-08-02] MEDS: guaiFENesin 200 MG/10 ML UD PO PRN ×2 (12:31→21:38)
[2020-08-02 13:00] VITALS: BP 126/73
--- NOTE | 2020-08-02 15:00 | NUR ---
Called [facility] and left a message times 2 for Matt Israel to get authorization for the patient to be transferred.
--- NOTE | 2020-08-02 15:30 | NUR ---
Received a call from Matt LOPEZ with [facility] [phone], express to him that we have a order from the MD to transfer the patient to [facility] and the joinery factory worker request that the patient goes to [facility], gave verbal update on the patient and faxed the requested clinical packet to him, stated he would send it to the [facility] for [facility] and they would handle the transfer, Gave the room number 274B of the patient and the unit number [phone].
--- NOTE | 2020-08-02 16:47 | NUR ---
I SPOKE TO MOTHER OF PATIENT-JAIMIE ([phone]) SHE EXPRESSED HER CONCERNS ABOUT TRANSFERRING TO [facility] SOON POSSIBLE. I EXPLAINED THE TRANSFER PROCESS AND REASSURED HER WE WERE WORKING ON THE TRANSFER. SHE EXPRESSED HER THANKS I ALSO ADDRESSED THE PLANS FOR HER DAUGHTER'S BABY. SHE HAS NO PLANS. SOME PHONE NUMBERS PROVIDED
--- NOTE | 2020-08-02 16:58 | NUR ---
Called [facility] spoke with [employer] dispatcher and place the patient on Will Call to go to [facility] when bed available
[2020-08-02 17:00] VITALS: BP 129/74
--- NOTE | 2020-08-02 18:46 | NUR ---
CLOSING SHIFT NOTE PATIENT HAS NO S/S OF DISTRESS/SOB OR PAIN AT THIS TIME. WILL ENDORSE CARE TO HORTICULTURAL MANAGER RN.
--- NOTE | 2020-08-02 19:10 | NUR ---
Opening Shift Note Assumed patient care from Day Shift RN. Patient is AOx4 and sitting up in bed eating dinner. Patient has no complaints of pain. No s/s of distress and no SOB. POC discussed with patient, and patient verbally agreed to understanding. Patient craving crackers and asked if she can have some. She denies any vomiting or nausea. Call light is within reach and bed is locked in lowest position. Will continue to monitor.
[2020-08-02 21:00] VITALS: BP 125/79
--- NOTE | 2020-08-02 22:00 | NUR ---
Patient Lochia Patient used commode for bowel movement and upon getting up from commode, lochia was bight red and over a quarter size amount on new pad.
--- NOTE | 2020-08-02 22:15 | NUR ---
Noted Loose Stool Per Kriss NEGRETE. The patient had 2 previous loose stools. Tonight at 2200 this was her third watery stool within 24 hours. C-diff protocol was done and taken to lab.
--- NOTE | 2020-08-03 01:33 | NUR ---
Call from [facility] Trish from [facility] called to make aware they are currently working on a bed for patient.
[2020-08-03] MEDS: ACETAMINOPHEN/CODEINE#3 (300/30mg) TAB PO PRN (04:23)
[2020-08-03] MEDS: VANCOMYCIN 1GM/250ML 250 ML IV SCH ×2 (04:37→17:48)
[2020-08-03 05:00] VITALS: BP 126/73
[2020-08-03] MEDS: metroNIDAZOLE 500MG/100ML 100 ML IV SCH ×3 (05:33→22:23)
[2020-08-03] MEDS: PIPERACILLIN-TAZOB 3.375GM 100 ML IV SCH ×3 (06:10→17:48)
[2020-08-03 06:52] LABS: Hematocrit 28.6 % (36.0-46.0); Hemoglobin 9.7 g/dL (12.2-16.2); Mean Corpuscular Hemoglobin 29.3 pg (28.0-32.0); Mean Corpuscular Hgb Conc. 33.9 g/dL (32.0-36.0); Mean Corpuscular Volume 86.5 fL (80.0-100.0); Platelet Count (auto) 159 10^3/uL (140-450); Red Blood Cells 3.31 10^6/uL (4.0-5.20); Red Cell Distribution Width 14.3 % (11.8-14.3)
[2020-08-03 07:01] LABS: Calcium 7.5 mg/dL (8.5-10.1); Potassium 3.5 mmol/L (3.5-5.1); White Blood Cell 32.7 10^3/uL (4.4-10.8)
[2020-08-03 07:02] LABS: Basophils % (manual) 0 (0.0-2.0); Blast Cells 0; Metamyelocytes % 0; Myelocytes % 0; Promyelocytes % 0; Reactive Lymphocytes 0
[2020-08-03 07:04] LABS: BUN/Creatinine Ratio 11.3
--- NOTE | 2020-08-03 07:05 | NUR ---
OPENING SHIFT NOTE ASSUMED CARE OF PATIENT FROM BRUSH WORKER RN JOSEFINA. PATIENT IS AWAKE, ALERT, AND ORIENTED X4. PATIENT HAS NO S/S OF DISTRESS/SOB OR PAIN. INSTRUCTED PATIENT ON POC, PATIENT VERBALIZED UNDERSTANDING. BED IS IN LOWEST POSITION WITH SIDE RAILS RAISED X2,BED WHEELS LOCKED, GALVAN IS HANGING BELOW BLADDER AND IS DRAINING YELLOW URINE, AND CALL LIGHT IS WITHIN REACH. WILL CONTINUE MONITOR.
--- NOTE | 2020-08-03 07:13 | NUR ---
PAGED BROKER IN CHARGE HOSPITALIST FOR CRITICAL WBCs AWAITING CALL BACK.
--- NOTE | 2020-08-03 07:20 | NUR ---
RECEIVED CALL FROM HOSPITALIST INFORMED HIM OF PATIENT WBCs. PER BILLING MACHINE OPERATOR HOSPITALIST, THE DAY SHIFT HOSPITALIST WILL SEE THE PATIENT. NO NEW ORDERS GIVEN.
[2020-08-03 07:50] LABS: Band Neutrophils % (manual) 2; Eosinophils % (manual) 1 (0-7); Lymphocytes % (manual) 11 (10.0-50.0); Monocytes % (manual) 4 (0-12)
[2020-08-03] MEDS: FLORASTOR (S. BOULARDII) 250 MG CAP PO SCH (08:01)
[2020-08-03] MEDS: SILDENAFIL CITRATE 20 MG TAB PO SCH ×3 (08:01→22:23)
[2020-08-03 09:00] VITALS: BP 132/70
[2020-08-03] MEDS: PANTOPRAZOLE 40 MG/10 ML VIAL INJ IV SCH (10:00)
[2020-08-03] MEDS: SODIUM CHLOR 0.9% PF (SALINE LOCK) 10ML VIAL/SYR IV SCH ×2 (10:00→22:23)
--- NOTE | 2020-08-03 11:38 | NUR ---
re-assessment Called [facility] to follow up on transfer. I have left a message for Matt LOPEZ with [facility] [phone] to return my call. Addendum: 08/03/20 at 1139 by Antonina LORENZANA Amended: Links added.
--- NOTE | 2020-08-03 12:20 | NUR ---
PAGED DR. RAZO PATIENT IS FEELING ANXIOUS. PAGED MD RAZO. AWAITING CALL BACK
--- NOTE | 2020-08-03 12:56 | NUR ---
Nutrition Assessment/Consult Notes Pt wt is 105.9 kg Pt was awake when rounded this morning. Pt is s/p demise. Pt is with a Full Liquid diet, appetite is good aeb ave 88% PO intake per RN doc. Pt stated her N/V has subsided, she is feeling much better, her appetite has returned and she is ready to eat a regular diet. She stated her diarrhea is still present, has no distress. Est Energy needs: 8522-8542 kcals (14-18 kcal/kgBW) Est Protein needs: 89-118 gms/day (1.5-2.0 gm/kgIBW) Will continue to monitor and reassess prn. LABS: Ca 7.5 L, Alb 1.9 GI: Pt had 2 BM on 08/03 per RN doc. BS: 20 low risk. Refer to wound assessment report for full details. PES: 1) Obesity r/t energy intake in excess of energy needs aeb 174% IBW and BMI of 36.7 kg/m2 2) Altered nutrition related lab values r/t current medical condition aeb hyperglycemia, hypocalcemia, severe hypoalbuminemia Comments Will continue to monitor PO status, skin status, pertinent labs and weight trends. Will f/u in 3-5 days. 1) Continue to carefully monitor pt PO intake to meet at least 75% of meals 2) If albumin continues trending down consider Prostat 1 pkt BID 3) Continue current plan of care
[2020-08-03 13:00] VITALS: BP 139/77
--- NOTE | 2020-08-03 13:19 | NUR ---
Dr. Uribe is at bedside.
[2020-08-03] MEDS ORDERED: LORazepam 0.5 MG TAB PO PRN (13:30)
[2020-08-03 17:00] VITALS: BP 132/80
--- NOTE | 2020-08-03 18:46 | NUR ---
CLOSING SHIFT NOTE PATIENT HAS NO S/S OF DISTRESS/SOB OR PAIN AT THIS TIME. WILL ENDORSE CARE TO BUSINESS DATABASE ANALYST RN.
--- NOTE | 2020-08-03 19:00 | NUR ---
Opening Note Assumed care of patient, awake,alert and oriented. Unlabored breathing, on room air. No S/S of distress/SOB or pain. Instructed on POC and to call for assist PRN, will continue to monitor. Discontinue Tam catheter, output in the bag was 1100cc. Will continue to monitor for urinary retention. Bed side commode near the patient.
[2020-08-03 22:12] VITALS: BP 133/78
[2020-08-03] MEDS: PROMETHAZINE HCL 25 MG/ML 1ML IV PRN (22:24)
[2020-08-04] MEDS: PIPERACILLIN-TAZOB 3.375GM 100 ML IV SCH ×2 (01:16→04:36)
[2020-08-04] MEDS: VANCOMYCIN 1GM/250ML 250 ML IV SCH (04:28)
[2020-08-04] MEDS: metroNIDAZOLE 500MG/100ML 100 ML IV SCH (04:36)
[2020-08-04 05:49] VITALS: BP 129/73
--- NOTE | 2020-08-04 07:00 | NUR ---
OPENING SHIFT NOTE ASSUMED CARE OF PATIENT FROM CASING IN LINE FEEDER RN CHARISSE. PATIENT IS AWAKE, ALERT, AND ORIENTED X4. PATIENT HAS NO S/S OF DISTRESS/SOB OR PAIN. INSTRUCTED PATIENT ON POC, PATIENT VERBALIZED UNDERSTANDING. BED IS IN LOWEST POSITION WITH SIDE RAILS RAISED X2,BED WHEELS LOCKED, AND CALL LIGHT IS WITHIN REACH. WILL CONTINUE MONITOR.
--- NOTE | 2020-08-04 07:19 | NUR ---
CALLED LAB FOR 0400 LABS. PER CHIEF LOAD DISPATCHER THEY ARE ROUNDING RIGHT NOW
[2020-08-04] MEDS ORDERED: ASPI-498 OR (07:21)
[2020-08-04 07:49] LABS: Hematocrit 28.1 % (36.0-46.0); Hemoglobin 9.3 g/dL (12.2-16.2); Mean Corpuscular Hemoglobin 28.9 pg (28.0-32.0); Mean Corpuscular Hgb Conc. 33.3 g/dL (32.0-36.0); Mean Corpuscular Volume 86.8 fL (80.0-100.0); Platelet Count (auto) 192 10^3/uL (140-450); Red Blood Cells 3.23 10^6/uL (4.0-5.20); Red Cell Distribution Width 14.2 % (11.8-14.3); White Blood Cell 28.1 10^3/uL (4.4-10.8)
[2020-08-04 08:03] LABS: Basophils % (manual) 0 (0.0-2.0); Blast Cells 0; Metamyelocytes % 0; Myelocytes % 0; Promyelocytes % 0; Reactive Lymphocytes 0
[2020-08-04 08:04] LABS: Calcium 7.6 mg/dL (8.5-10.1); Magnesium 1.9 mg/dL (1.6-2.6); Potassium 3.3 mmol/L (3.5-5.1)
[2020-08-04 08:08] LABS: BUN/Creatinine Ratio 9.4; Bilirubin, Total 0.3 mg/dL (0.2-1.0); Phosphorus 3.2 mg/dL (2.5-4.90); Total Protein 5.6 g/dL (6.4-8.2)
[2020-08-04 08:18] LABS: INR 1.11 (0.9-1.15); Partial Thromboplastin Time 24.7 sec (23.0-31.2)
[2020-08-04 08:52] LABS: Band Neutrophils % (manual) 5; Eosinophils % (manual) 2 (0-7); Lymphocytes % (manual) 9 (10.0-50.0); Monocytes % (manual) 3 (0-12)
[2020-08-04 09:00] VITALS: BP 124/90
[2020-08-04] MEDS: SODIUM CHLOR 0.9% PF (SALINE LOCK) 10ML VIAL/SYR IV SCH (09:23)
[2020-08-04] MEDS: PANTOPRAZOLE 40 MG/10 ML VIAL INJ IV SCH (09:23)
[2020-08-04] MEDS: FLORASTOR (S. BOULARDII) 250 MG CAP PO SCH (09:23)
[2020-08-04] MEDS: SILDENAFIL CITRATE 20 MG TAB PO SCH (09:23)
--- NOTE | 2020-08-04 09:32 | NUR ---
RECEIVED CALL FROM [facility], SPOKE WITH [employer] CONSULTANT ARACELI. PER ARACELI THEY CARE CURRENTLY WORKING ON A BED FOR THE PATIENT.
--- NOTE | 2020-08-04 09:45 | NUR ---
PATIENT'S RIGHT ARM IS EDEMATOUS AND HOT. CALLED MD RAZO AND INFORMED HIM. MD ORDERED ULTRASOUND AND CHEST XRAY. WILL FOLLOW THROUGH WITH ORDERS.
--- NOTE | 2020-08-04 10:45 | NUR ---
RECEIVED CALL FROM ARACELI FROM [facility] PATIENT HAS A BED. [address] ACCEPTING MD IS DR. CAMPO. PHONE NUMBER IS . WILL INFORM MD RAZO.
--- NOTE | 2020-08-04 11:00 | NUR ---
MD RAZO AT BEDSIDE UPDATED MD ON PATIENT'S STATUS INCLUDING X-RAY RESULTS AND POTASSIUM LEVEL. MD IS AWARE AND ORDERED CATH FLOW. WILL FOLLOW THROUGH WITH ORDERS. PER MD PATIENT IS STABLE FOR TRANSPORTATION AND OKAY TO DO CATH FLOW.
[2020-08-04] MEDS ORDERED: POTASSIUM EFFERVESENT TAB 25 MEQ PO ONE (11:15)
[2020-08-04] MEDS ORDERED: POTASSIUM CHL 20MEQ/100ML 100 ML IV ONE (11:15)
[2020-08-04] MEDS ORDERED: CATHFLO ACTIVASE (ALTEPLASE) 2 MG VIAL IV ONE (11:30)
[2020-08-04] MEDS ORDERED: ACE325T PO (11:40)
[2020-08-04] MEDS ORDERED: GUAI-41 PO (11:40)
[2020-08-04] MEDS ORDERED: SILD20TA PO (11:45)
[2020-08-04] MEDS ORDERED: PIPE4INJ IV (11:45)
[2020-08-04] MEDS ORDERED: VANC500I IV (11:45)
--- NOTE | 2020-08-04 11:54 | NUR ---
PAGED MANIFOLD OPERATOR ROUTE VENDING MACHINE SERVICER FOR TRANSPORTATION.
--- NOTE | 2020-08-04 11:58 | NUR ---
SPOKE WITH LUCIA FROM [facility] TO SET UP TRANSPORTATION. ETA IS AT 1300
--- NOTE | 2020-08-04 12:01 | NUR ---
CALLED ARACELI FROM [facility] TWICE FOR NURSE REPORT. PHONE NUMBER FOR ARACELI IS . ARACELI DID NOT ANSWER. LEFT MESSAGE AWAITING CALL BACK.
[2020-08-04 12:28] VITALS: BP 124/90
[2020-08-04 13:00] VITALS: BP 125/71
--- NOTE | 2020-08-04 14:17 | NUR ---
RELIEF RN NOTE PER RELIEF RN LORENZA, TRANSPORTATION ([facility]) PICKED UP PATIENT AT 1341. PATIENT HAS NO S/S OF DISTRESS/SOB OR PAIN AT TIME OF DEPARTURE.
== END 2020-08-04 13:41 | disposition short-term general hospital (02) | DRG 817 ==
LOC: ER 20:22 → OBSVTOIN 21:05 → LDRP 21:05 → ICU WEST 07-28 12:02 → TELE-WESTW 08-01 15:56
PROVIDERS: ADMIT Specialist; ATTEND Internal Medicine Pulmonary Disease
PROC: 0UCC0ZZ Extirpation of Matter from Cervix, Open Approach (ICD-10-PCS; principal; 2020-07-28)
PROC: 02HV33Z Insertion of Infusion Device into Superior Vena Cava, Percutaneous Approach (ICD-10-PCS; 2020-07-28)
PROC: B548ZZA Ultrasonography of Superior Vena Cava, Guidance (ICD-10-PCS; 2020-07-28)
DX: O36.4XX0 Maternal care for intrauterine death, not applicable or unspecified (principal); R65.21 Severe sepsis with septic shock; J96.01 Acute respiratory failure with hypoxia; N17.0 Acute kidney failure with tubular necrosis; A41.9 Sepsis, unspecified organism; O99.12 Other diseases of the blood and blood-forming organs and certain disorders involving the immune mechanism complicating childbirth; Q21.0 Ventricular septal defect; Q21.1 Atrial septal defect; O99.412 Diseases of the circulatory system complicating pregnancy, second trimester; O99.112 Other diseases of the blood and blood-forming organs and certain disorders involving the immune mechanism complicating pregnancy, second trimester; O98.812 Other maternal infectious and parasitic diseases complicating pregnancy, second trimester; O26.832 Pregnancy related renal disease, second trimester; Z3A.23 23 weeks gestation of pregnancy; E66.01 Morbid (severe) obesity due to excess calories; I27.20 Pulmonary hypertension, unspecified; I34.0 Nonrheumatic mitral (valve) insufficiency; O99.212 Obesity complicating pregnancy, second trimester; O99.512 Diseases of the respiratory system complicating pregnancy, second trimester; O99.012 Anemia complicating pregnancy, second trimester; O99.282 Endocrine, nutritional and metabolic diseases complicating pregnancy, second trimester; O36.8120 Decreased fetal movements, second trimester, not applicable or unspecified; Z20.828 Contact with and (suspected) exposure to other viral communicable diseases
CPT/HCPCS: 36415; 36569; 36600; 59025; 59409; 71045; 71275; 76815; 76830; 76856; 78582; 80048; 80053; 80202; 80307; 81001; 81002; 82728; 82805; 83036; 83605; 83615; 83735; 84100; 84112; 84550; 85007; 85025; 85027; 85362; 85379; 85384; 85610; 85613; 85670; 85705; 85730; 85732; 86141; 86592; 86703; 86762; 86850; 86900; 86901; 87040; 87081; 87086; 87340; 87426; 87493; 93306; 93312; 94640; 96361; 96365; 96367; 96374; 96375; 97116; 97163; 97530; C9113; G0378; J0696; J2250; J2405; J2543; J2590; J3480; J3490; J7042; J7060